=== PATIENT | female | born 1985 | race Caucasian/White ===

== ENCOUNTER 2021-02-06 14:17 | Emergency (ER) | payer MEDICAID ==
[~2021-02-06 14:17] MED LIST: DIAZ5TAB4 PO; NORCO10T PO
== END 2021-02-06 15:05 | disposition left against medical advice (07) ==
LOC: ER 14:17
DX: R10.9 Unspecified abdominal pain (principal); Z53.21 Procedure and treatment not carried out due to patient leaving prior to being seen by health care provider